=== PATIENT | female | born 1965 ===

== ENCOUNTER 2019-10-01 16:37 | Inpatient (IN) | payer OTHER ==
[~2019-10-01] VITALS: Ht 164.5 cm; Wt 147.0 kg
[2019-10-01] MEDS ORDERED: VISTARIL25 MG PO (17:05)
[2019-10-01] MEDS ORDERED: B COMPLEX1 EACH PO (17:06)
[2019-10-01] MEDS ORDERED: ZANAFLEX4 M1 PO (17:07)
[2019-10-01] MEDS ORDERED: GERI-KOT8.6 MG PO (17:08)
[2019-10-01] MEDS ORDERED: REQUIP0.25 M1 PO (17:09)
[2019-10-01] MEDS ORDERED: VITAMIN B-121000 MC2 PO (17:10)
[2019-10-01] MEDS ORDERED: DOSOQUIN TABLE1 EACH PO (17:18)
[2019-10-01] MEDS ORDERED: VRAYLAR6 MG PO (17:19)
[2019-10-01] MEDS ORDERED: XANAX1 MG PO (17:20)
[2019-10-01] MEDS ORDERED: FLORASTOR250 MG PO (17:31)
[2019-10-01] MEDS ORDERED: PROPRANOLOL HCL40 MG PO (17:32)
[2019-10-01] MEDS ORDERED: OMEPRAZOLE MAGN20 MG PO (17:33)
[2019-10-01] MEDS ORDERED: NYSTATIN CREAM15 GM T (17:36)
[2019-10-01] MEDS ORDERED: MYRBETRIQ50 M1 PO (17:39)
[2019-10-01] MEDS ORDERED: L-METHYLFOLATE1 EAC6 PO (18:05)
[2019-10-01] MEDS ORDERED: NEURONTIN600 MG PO (18:06)
[2019-10-01] MEDS ORDERED: CYMBALTA60 MG PO (18:10)
[2019-10-01] MEDS ORDERED: ESTRACE1 M1 V (18:10)
[2019-10-01] MEDS ORDERED: COLACE100 MG PO (18:11)
[2019-10-01] MEDS ORDERED: CRANBERRY450 M2 PO (18:13)
[2019-10-01] MEDS ORDERED: DULCOLAX10 M1 R (18:14)
[2019-10-01] MEDS ORDERED: COGENTIN0.5 MG PO ×2 (18:15)
[2019-10-01] MEDS ORDERED: ARTIFICIAL TEAR1514 OP (18:16)
[2019-10-01] MEDS ORDERED: ELIQUIS5 M1 PO (18:17)
[2019-10-01] MEDS ORDERED: TYLENOL325 M3 PO (18:18)
[2019-10-01 18:55] VITALS: BP 130/77
[2019-10-01 19:38] VITALS: BP 130/77
[2019-10-02 07:18] LABS: BASO % 0.3 % (0.0-1.0); EOS # 0.2 10*3/uL (0.0-0.4); EOS % 2.5 % (1.0-4.0); HEMATOCRIT 40.9 % (37.0-47.0); LYMPH # 2.2 10*3/uL (1.3-4.4); LYMPH % 33.6 % (27.0-41.0); MEAN CELL VOLUME 93.8 fl (81.0-99.0); MEAN CORPUSCULAR HGB 29.1 pg (27.0-31.0); MEAN CORPUSCULAR HGB CONC 31.1 g/dl (33.0-37.0); MONO # 0.7 10*3/uL (0.1-1.0); MONO % 10.5 % (3.0-9.0); NEUT # 3.4 10*3/uL (2.3-7.9); NEUT % 52.8 % (47.0-73.0); PLATELET COUNT AUTOMATED 240 10*3/uL (130-400); RED BLOOD COUNT 4.36 10*6/uL (4.10-5.10); RED CELL DISTRI WIDTH 12.6 % (0-14.5); WHITE BLOOD COUNT 6.4 10*3/uL (4.8-10.8)
[2019-10-02 07:33] LABS: CHLORIDE 108 mmol/L (98-107); POTASSIUM 3.5 mmol/L (3.5-5.1); SODIUM 142 mmol/L (136-145)
[2019-10-02 07:44] VITALS: BP 134/74
[2019-10-02 07:47] LABS: ALKALINE PHOSPHATASE 125 U/L (45-117); BUN 17 mg/dl (7-24); CHOLESTEROL 174 mg/dL (<200); CREATININE 1.08 mg/dL (0.55-1.02); HDL CHOLESTEROL 33 mg/dl (40-60); LDL CHOLESTEROL 112 mg/dL (9-159); SGOT/AST 48 IU/L (3-35); SGPT/ALT 54 U/L (12-78); THYROID STIM HORMONE (HS) 0.919 uIU/ml (0.358-4.75); TOTAL PROTEIN 7.1 gm/dL (6.4-8.2); TRIGLYCERIDES 144 mg/dl (<150); VLDL CHOLESTEROL 29 mg/dL (6-40)
[2019-10-02 07:58] LABS: VITAMIN D, 25-HYDROXY 90.2 ng/mL (30-100)
[2019-10-02] MEDS ORDERED: COGENTIN0.5 MG PO (10:04)
[2019-10-02] MEDS ORDERED: BIOFREEZE118 ML T (10:06)
[2019-10-02] MEDS ORDERED: CEPACOL SORE T1 EAC2 PO (10:07)
[2019-10-02] MEDS ORDERED: FLEET ENEMA EX230 M1 R (10:25)
[2019-10-02] MEDS ORDERED: ICY HOT CREAM35.4 GM T (10:29)
[2019-10-02] MEDS ORDERED: MACROBID100 M1 PO (10:30)
[2019-10-02] MEDS ORDERED: MILK OF MA400 MG/52 PO (10:32)
[2019-10-02] MEDS ORDERED: MIRALAX17 GM PO (10:37)
[2019-10-02] MEDS ORDERED: RISPERDAL0.5 MG PO (10:56)
[2019-10-02] MEDS ORDERED: ULTRAM50 MG PO (10:57)
[2019-10-02] MEDS ORDERED: TESSALON PERLE100 M1 PO (10:57)
[2019-10-02] MEDS ORDERED: VISTARIL50 MG PO (10:59)
[2019-10-02] MEDS ORDERED: VISTARIL25 MG PO (10:59)
[2019-10-02] MEDS ORDERED: VITAMIN D3250 MC2 PO (11:03)
[2019-10-02] MEDS ORDERED: VRAYLAR6 MG PO (11:04)
[2019-10-02] MEDS ORDERED: XANAX1 MG PO (11:06)
[2019-10-02] MEDS ORDERED: ONDANSETRON8 MG PO (11:06)
[2019-10-02 19:06] VITALS: BP 114/69
[2019-10-03 07:23] VITALS: BP 113/60
[2019-10-03 20:00] VITALS: BP 124/56
[2019-10-03 21:19] LABS: BILIRUBIN NEGATIVE (NEGATIVE); BLOOD NEGATIVE (NEGATIVE); CLARITY CLEAR (CLEAR); COLOR YELLOW (YELLOW); GLUCOSE NEGATIVE (NEGATIVE); KETONE NEGATIVE (NEGATIVE); LEUKO ESTERASE 1+ (NEGATIVE); NITRITE NEGATIVE (NEGATIVE); PH 5.5 (5.0-9.0)
[2019-10-03 21:24] LABS: BACTERIA 2+; CALCIUM OXALATE CRYSTALS 2+; MUCOUS TRACE; RBC 0-2 rbc/hpf (0-2)
[2019-10-04 07:24] VITALS: BP 117/69
[2019-10-04 20:00] VITALS: BP 119/65
[2019-10-05 07:43] VITALS: BP 109/66
[2019-10-05 19:40] VITALS: BP 118/67
[2019-10-06 08:00] VITALS: BP 117/64
[2019-10-06] MEDS ORDERED: BENZTROPINE ME0.5 MG PO (08:37)
[2019-10-06] MEDS ORDERED: PALIPERIDONE ER3 MG PO (08:37)
[2019-10-06] MEDS ORDERED: ALPRAZOLAM0.5 M3 PO (08:37)
[2019-10-06 09:28] VITALS: BP 102/60
[2019-10-06 20:00] VITALS: BP 110/80
[2019-10-07 07:52] VITALS: BP 112/63
[2019-10-07 08:53] VITALS: BP 118/70
[2019-10-07] MEDS ORDERED: KEFLEX 500 MG E2 CAP PO (10:49)
[2019-10-08 16:12] LABS: NEURONTIN (GABAPENTIN) 13.1 ug/mL (4.0-16.0)
== END 2019-10-07 12:17 | DRG 885 ==
LOC: 3N 16:37
PROVIDERS: Counselor Professional; Nurse Practitioner Women's Health; ADMIT Psychiatry & Neurology Psychiatry
DX: F23 Brief psychotic disorder (principal); D68.62 Lupus anticoagulant syndrome; E72.12 Methylenetetrahydrofolate reductase deficiency; N39.0 Urinary tract infection, site not specified; Z68.43 Body mass index [BMI] 50.0-59.9, adult; F31.5 Bipolar disorder, current episode depressed, severe, with psychotic features; K21.9 Gastro-esophageal reflux disease without esophagitis; N18.9 Chronic kidney disease, unspecified; E53.8 Deficiency of other specified B group vitamins; Z20.828 Contact with and (suspected) exposure to other viral communicable diseases; F41.9 Anxiety disorder, unspecified; F43.10 Post-traumatic stress disorder, unspecified; G89.29 Other chronic pain; E78.5 Hyperlipidemia, unspecified; E66.01 Morbid (severe) obesity due to excess calories; D64.9 Anemia, unspecified; I12.9 Hypertensive chronic kidney disease with stage 1 through stage 4 chronic kidney disease, or unspecified chronic kidney disease; Z90.49 Acquired absence of other specified parts of digestive tract; Z90.710 Acquired absence of both cervix and uterus; Z88.8 Allergy status to other drugs, medicaments and biological substances; Z82.49 Family history of ischemic heart disease and other diseases of the circulatory system